=== PATIENT | male | born 1950 | race Caucasian/White ===

== ENCOUNTER 2018-06-02 07:54 | Outpatient (RCR) | payer OTHER, SELFPAY ==
--- NOTE | 2018-06-02 08:40 | IE_ITS ---
Date: June 02, 2018 Referring: Raudel Ware M.D. M.D. Diagnosis: Cervicothoracic pain SUBJECTIVE: History of Present Illness: Crispin reports a one year history of intensifying upper back / neck pain of insidious onset. Admits the past month or so his symptoms have exacerbated, to the point where he sought medical treatment. Denies any significant injury Pain Rating: At time of I.E. 1/10, described as a tight, stiff, sore sensation and at it's worst 8 to 9/10, in the past week. Pain Location: Cervicothoracic junction with radiation of symptoms across bilateral posterior scapula into the upper lateral arms stopping at the elbows bilaterally. Symptoms come on randomly, especially while walking. He does comment that he feels crepitus in his neck with cervical motions. He has been utilizing BioFreeze for symptom relief along with Cyclobenzaprine. This has helped since increasing his dose to 2 tablets 3x per day as prescribed on the bottle. Current Level of Function: Poor sleep patterns. Difficulty with cervical motions required for driving. Difficulty flexing at the spine, reaching forward for any weights above 10#. Previous Treatment: N/A Social: Lives with his in their multi level home. 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 Comorbidities: Unremarkable. Falls in the last year: __x__ No ____Yes - How many? ____ - (if over 2, balance SM needs to be completed) Reported hospitalizations in the last year - __x__ No ____ Yes - Dates of admission/reason: Medications: Cyclobenzaprine and Ibuprofen No significant symptom reduction with use of Ibuprofen Quality of Life: ____ Excellent ____ Good __x__ Fair ____ Poor Standardized Measures: NDI score: __[22%]__ OBJECTIVE: Posture: Mild forward head and protracted scapulae bilaterally. He has adequate lumbar lordosis with level iliac crests. Palpation: Mildly tender with palpation of bilateral cervical paraspinals, C5 through T3. Also, mildly tender through the left upper trapezius and levator scapula, as well as sensitive with suboccipital palpation. ROM: Bilateral glenohumeral joint AROM is WNL and painfree. Cervical spine AROM into rotation left 45 A and 55 AA vs. 60 A and 70 AA to the right. Side bending hypo mobile bilaterally 15 and 20 AA. Flexion 30 and extension 25 with crepitus noted. Strength: 5/5 bilateral UE strength throughout. Cervical spine isometric strength 4+/5 rotation bilaterally, side bending bilaterally and extension. 4 - to 4/5 resisted flexion. Joint accessory motion: Hypo mobility detected through the left cervical segments C4 through C7 as well as hypo mobility with PA mobs to the upper thoracic spine T1 through T5 with increased sensitivity with palpation of T6/7. Neuro: Sensation is reportedly intact to light touch through bilateral UEs. DTRs +2 for T5/6 and T7. Myotomes are WNL bilateral UEs. Special Tests: (-) cervical compression. (-) quadrant compression. Treatment: IE: 24179 x1 Patient Education: Initial evaluation followed by instruction in a HEP. Applied estim w/moist heat pack to the cervical spine x15 minutes while seated. Direct treatment time: 60 minutes from 8:00 til 9:00 A.M. ASSESSMENT: Patient is a 67-year-old male, referred for PT services with the diagnosis of cervicothoracic pain. Patient presents with clinical signs and symptoms consistent with DJD/DDD of the cervical spine, as demonstrated by the following impairment level findings: impaired joint mobility, motor function, muscle performance and ROM associated with a spinal disorder Impairments are contributing to the following functional limitations: Patient is assessed as: __x__ Low 74660 complexity, based on the following: History: (list): See comorbidities and social history. Examination: (list): See above for functional limitations and impairments. Presentation: Stable and uncomplicated Decision-Making: Low complexity ____ Patient requires skilled PT intervention to remediate the above functional limitations to return to: __x__ Return to full functional mobility Prognosis: __x__ Good G-Codes (fill in modifier after appropriate code): Patient's primary functional limitation is in the category of: __x__ Changing and maintaining body position: [id number] Projected goal: __x__ Changing and maintaining body position: [id number] STG: __6__ weeks. 1) decrease pain by 50% 2) patient independent and compliant with HEP 3) improve cervical rotation by 10 in each direction 4) improve quality of sleep by 50% per subjective report LTG: __12__ weeks. 1) return to full, painfree functional mobility PLAN: Patient to be seen 1 to 2x per week, for 12 weeks, adjusting frequency of visits per patient symptoms and response to treatment. Treatment to include: Manual therapy - 67797 - cervical mobs, up slips, down slopes, lateral glides and OA release. Soft tissue mobs through the cervical paraspinals and into the thoracic paraspinals, upper trapezius and levator scapula Therapeutic exercise - 68810 - focus to be on a cervical stabilization program Will utilize estim w/moist heat for pain control as needed ([id number]). The patient is in agreement with this POC, and is to be discharged when the above goals have been met. Thank you for this referral. Please do not hesitate to contact me with any questions or concerns regarding this patient's plan of care. Please sign, date and return to our clinic with your approval...................... Raudel Ware M.D.
== END 2018-06-05 23:59 | disposition home or self-care (01) ==
LOC: PT 07:54
PROVIDERS: PCP Family Medicine; Referring Provider Family Medicine; Visit Provider Family Medicine
DX: M54.2 Cervicalgia (principal); M54.6 Pain in thoracic spine; M50.30 Other cervical disc degeneration, unspecified cervical region
CPT/HCPCS: 97161

== ENCOUNTER 2018-08-10 09:33 | Outpatient (CLI) | payer OTHER, SELFPAY ==
--- NOTE | 2018-08-10 09:12 | DI.RAD_ITS ---
SYMPTOMS/DIAGNOSIS: CERVICALGIA CHRONIC, M54.2 CERVICAL SPINE: Odontoid, AP, lateral and bilateral oblique views. No priors. There is normal alignment of the cervical spine. The odontoid is intact. The lateral masses are well aligned. At C 5 - 6 there are small endplate osteophytes anteriorly. At C 6 - 7 there is disc space narrowing and endplate osteophytes. There is mild neuroforaminal encroachment bilaterally at C 6 - 7. No acute fractures or subluxations are seen. The bones are normally mineralized. The soft tissues are unremarkable. IMPRESSION: Mild cervical spondylolysis particularly at C 6 - 7 as described above.
[2018-08-10 10:10] LABS: Abs Immature Grans 0.02 k/cumm (0.0-0.09); Absolute Basophil Count 0.06 k/cumm (0.0-0.2); Absolute Eosinophil Count 0.33 k/cumm (0.0-0.7); Absolute Lymphocyte Count 2.63 k/cumm (1.2-3.4); Absolute Monocyte Count 0.96 k/cumm (0.11-0.7); Absolute Neutrophil Count 5.97 k/cumm (1.2-6.7); Basophils % 0.6; Eosinophils % 3.3; HCT 45.7 % (40.0-50.0); HGB 15.4 g/dL (13.5-17.5); Immature Grans % 0.2; Lymphocytes % 26.4; Mean Corp. HGB Concentration 33.7 g/dL (32.0-36.0); Mean Corpuscular Hemoglobin 31.2 pg (27.0-33.0); Mean Corpuscular Volume 92.5 fL (80-95); Mean Platelet Volume 9.6 fL (8.0-11.0); Monocytes % 9.6; Neutrophils % 59.9; Platelet Count 269 x1000/uL (130-400); RBC 4.94 m/cumm (4.50-6.00); RBC Distribution Width 13.3 % (11.8-14.1); White Blood Cell Count 9.97 k/cumm (4.4-10.8)
[2018-08-10 10:49] LABS: ALT 27 U/L (12-78); AST 15 U/L (15-37); Albumin 4.2 g/dL (3.4-5.0); Alkaline Phosphatase 92 U/L (46-116); Anion Gap 8.4 mmol/L (3-11); BUN 18 mg/dL (7-18); Bilirubin, Total 0.4 mg/dL (0.2-1.0); CO2 28.6 mmol/L (21.0-32.0); CREATININE 1.29 mg/dL (0.70-1.30); Calcium 9.3 mg/dL (8.5-10.1); Chloride 105 mmol/L (98-107); Estimated GFR 55.39 (mL/min/1.73m2); Glucose 105 mg/dL (70-100); Sodium 142 mmol/L (136-145)
[2018-08-10 10:51] LABS: ESR 12 MM/HR (1-20)
== END 2018-08-10 09:53 ==
PROVIDERS: PCP Family Medicine; Visit Provider Family Medicine
DX: M54.2 Cervicalgia (principal); M43.02 Spondylolysis, cervical region; M25.78 Osteophyte, vertebrae
CPT/HCPCS: 36415; 80053; 85652; 72050; 85025

== ENCOUNTER → 2018-09-03 12:01 | Outpatient (BNVA) | payer OTHER, SELFPAY | PROVIDERS: PCP Family Medicine; Visit Provider Psychiatry & Neurology Neurology | DX: M54.2 Cervicalgia (principal) | CPT/HCPCS: 64405; 99205; 99215 ==